=== PATIENT | female | born 1980 | race Two or more races ===

== ENCOUNTER 2023-11-28 12:06 | Emergency (ER) | payer MEDICAID ==
[~2023-11-28] VITALS: Ht 160 cm; Wt 75.0 kg
[2023-11-28 12:38] VITALS: TEMP 98.2
[2023-11-28] MEDS: CYCLOBENZAPRINE HCL 10 MG TABLET PO ONE (13:39)
[2023-11-28] MEDS: KETOROLAC TROMETHAMINE 30 MG/ML VIAL IVP ONE (13:39)
[2023-11-28] MEDS ORDERED: IBUP-1492 PO (17:12)
[2023-11-28] MEDS ORDERED: HYDR-4062 PO (17:12)
[2023-11-28 17:48] VITALS: BP 125/73; PULSE 85; RESP 16
== END 2023-11-28 17:49 | disposition home or self-care (01) ==
LOC: EMS 12:08
DX: S16.1XXA Strain of muscle, fascia and tendon at neck level, initial encounter (principal); M25.512 Pain in left shoulder; M25.522 Pain in left elbow; J45.909 Unspecified asthma, uncomplicated; V89.2XXA Person injured in unspecified motor-vehicle accident, traffic, initial encounter; Y93.89 Activity, other specified; Y92.89 Other specified places as the place of occurrence of the external cause; Y99.8 Other external cause status
CPT/HCPCS: 99285; 70450; 96374; 29105; 73030; 73080; 72125; J1885